=== PATIENT | female | born 1995 | race Caucasian/White ===

== ENCOUNTER 2017-05-27 21:46 | Emergency (ER) | payer BC | END 2017-05-27 22:15 | disposition home or self-care (01) | LOC: ERS 21:46 | DX: B86 Scabies (principal) | CPT/HCPCS: 99282 ==

== ENCOUNTER 2017-05-28 09:37 | Emergency (ER) | payer BC ==
[2017-05-28 11:19] LABS: #Eosinphils 0.1 thou/uL (0.0-0.7); #Monocytes 0.4 thou/uL (0.11-0.59); %Basophils 0.4 % (0.0-1.0); %Eosinophils 1.4 % (0.0-10.0); %Lymphocytes 18.3 % (21.0-51.0); Hematocrit 42.8 % (36.0-47.0); Mean Platelet Volume 6.8 fL (7.4-10.4); Red Blood Cell (RBC) Count 4.46 mill/uL (4.20-5.40); White Blood Cell (WBC) Count 5.5 thou/uL (4.8-10.8)
[2017-05-28 11:48] LABS: ALT (SGPT) 20 U/L (8-55); AST (SGOT) 23 U/L (5-34); Alkaline Phosphatase 77 U/L (40-150); Anion Gap 15 mmol/L (10-20); BUN (Urea Nitrogen) 9 mg/dL (7.0-18.7); Bilirubin, Total 0.4 mg/dL (0.2-1.2); Calc. Creatinine Clearance 0 mL/min (70-130); Calcium 9.7 mg/dL (7.8-10.44); Carbon Dioxide 29 mmol/L (22-29); Chloride 102 mmol/L (98-107); Estimated GFR-MDRD Greater than 90; Globulin 3.9 g/dL (2.4-3.5); Protein, Total 8.3 g/dL (6.0-8.3)
--- OUTSIDE RECORDS SUMMARY | 2017-05-30 17:21 | XMS | Clinical Summary ---
:1995 Author Organization [facility] Address [address] [place] [id number] Phone Care Team Providers Name Role Phone Genna Escobar Primary Care Provider tel Allergies Active Allergy Reactions Severity Noted Date Comments Sulfa (Sulfonamide Antibiotics) 01/18/2016 Budesonide-Formoterol 01/18/2016 Current Medications Prescription Sig. Disp. Refills Start Date End Date Status spironolactone (ALDACTONE) Take 25 mg by 12/07/2015 Active 25 MG tablet mouth daily. metFORMIN (GLUCOPHAGE) 500 Take 500 mg by Active MG tablet mouth 2 (two) times a day with meals. cholecalciferol, vitamin Take 1,000 Units Active D3, (VITAMIN D3) 1,000 by mouth daily. unit tablet prasterone, dhea, (DHEA) Take by mouth. Active 50 mg tablet progesterone (PROMETRIUM) Place 10 mg under Active 200 MG capsule the tongue as needed. zinc 50 mg tablet Take 1 tablet by Active mouth daily. RABEprazole (ACIPHEX) 20 05/16/2016 Active mg EC tablet APRISO 0.375 gram 24 hr 05/10/2016 Active capsule FERROUS SULFATE, DRIED Take by mouth. Active (IRON, DRIED, ORAL) CYANOCOBALAMIN, VITAMIN Take by mouth. Active B-12, (VITAMIN B-12 ORAL) Active Problems Problem Noted Date Arthralgia 03/13/2016 Family history of rheumatoid arthritis 03/13/2016 Elevated testosterone and menstrual irreg 01/18/2016 Acute sinusitis 12/21/2015 Hive 07/21/2013 Abdominal pain 03/07/2013 Acne 03/07/2013 Influenza vaccine needed 04/22/2012 Healthy pediatric patient 04/22/2012 Allergic rhinitis 04/19/2012 Asthma 04/19/2012 Constipation 04/19/2012 Encounters Date Type Specialty Care Team Description 04/16/2017 Office Visit Orthopedic Surgery Aime Payan S/P left knee arthroscopy (Primary Dx) 03/12/2017 Office Visit Orthopedic Surgery Saurabh Jim/P left knee BRITTANY Ayers arthroscopy (Primary Dx) 03/06/2017 Telephone Orthopedic Surgery Bernarda Choi LVN 03/02/2017 Hospital Encounter General Surgery Aime Payan MD 03/02/2017 Documentation Orthopedic Surgery Alicia Metz, post surgery meds MA 03/02/2017 Procedure Pass General Surgery 03/02/2017 Surgery General Surgery Aime Payan, LEFT KNEE ARTHROSCOPY, LATERAL RELEASE & SYNOVECOMTY 02/26/2017 Anesthesia Event General Surgery Evelyn Zambrano FNP from Last 3 Months Immunizations Name Dates Previously Given Next Due DTaP 10/29/1999,12/27/1996,03/29/1996,01/19/1996, 6 HPV Quadrivalent 06/22/2008,02/04/2008,12/05/2007 Hep A, 2 Dose 10/29/1999 Hep B, Unspecified 09/20/1996,03/29/1996 Hepatitis B 06/02/2000 Hib (HbOC) 12/27/1996,03/29/1996,1995 IPV 10/29/1999,03/29/1996,01/19/1996,1995 Influenza Split 04/22/2012 Influenza TIV (IM) 04/30/2010 MMR 09/23/1996,03/29/1996 Meningococcal MCV4P 11/24/2013,06/21/2007,02/04/2000 Pneumococcal Conjugate 02/04/2000 Tdap 06/23/2007 Varicella 06/21/2007,09/20/1996 Yellow Fever 10/18/2016 Family History Medical History Relation Name Comments Cancer Father Heart disease Father Hypertension Father Arthritis Mother No Known Problems Other Sibling Relation Name Status Comments Father Alive Mother Alive Other Sibling Alive Social History Tobacco Use Types Packs/Day Years Used Date Never Smoker Smokeless Tobacco: Never Used Alcohol Use Drinks/Week oz/Week Comments Yes 1 per week Sex Assigned at Date Recorded Not on file Last Filed Vital Signs Vital Sign Reading Time Taken Blood Pressure 120/71 03/02/2017 11:10 AM CDT Pulse 53 03/02/2017 11:10 AM CDT Temperature 36.4 C (97.6 F) 03/02/2017 11:45 AM CDT Respiratory Rate 16 03/02/2017 11:10 AM CDT Oxygen Saturation 97% 03/02/2017 11:10 AM CDT Inhaled Oxygen Concentration - - Weight 49.9 kg (110 lb) 02/16/2017 3:37 PM CDT Height 162.6 cm (5' 4") 02/16/2017 3:37 PM CDT Body Mass Index 18.88 02/16/2017 3:37 PM CDT Plan of Treatment Health Maintenance Due Date Last Done Comments PAP SMEAR 2016 INFLUENZA VACCINE 03/06/2017 04/22/2012, 04/30/2010 Results POC , urine (03/02/2017 7:34 AM) Component Value Ref Range test urine, POC Negative QC done Yes Specimen Performing Laboratory Urine POC glucose (03/02/2017 7:33 AM) Component Value Ref Range POC glucose 88 65 - 99 mg/dL Comment: Meter ID: [id number] Can Doffer: Jann Craft Specimen Performing Laboratory [facility] DEPARTMENT OF PATHOLOGY AND GENOMIC MEDICINE [id number] [place] [address] from Last 3 Months Insurance Payer Benefit Plan / Group Subscriber ID Type Phone Address BCBS BCBS OUT OF STATE [id number] PPO [phone] [address] [place] [id number]
== END 2017-05-28 12:10 | disposition home or self-care (01) ==
LOC: ERS 09:37
DX: B08.4 Enteroviral vesicular stomatitis with exanthem (principal); B86 Scabies
CPT/HCPCS: 36415; 80053; 85025; 86308; 99283